=== PATIENT | male | born 1970 | race African-American/Black ===

== ENCOUNTER 2016-12-08 09:35 | Emergency (ER) | payer BC, OTHER ==
[~2016-12-08] VITALS: Ht 188 cm; Wt 97.0 kg
[~2016-12-08 09:35] MED LIST: ALLEGRA; [UNRECOGNIZED DRUG - REMARK]
[2016-12-08] MEDS ORDERED: KETOROLAC 30MG/ML VIAL IM ONE (11:45)
[2016-12-08 12:08] VITALS: BP 168/99
== END 2016-12-08 14:07 | disposition home or self-care (01) ==
LOC: ER 11:48
DX: S39.012A Strain of muscle, fascia and tendon of lower back, initial encounter (principal); X50.1XXA Overexertion from prolonged static or awkward postures, initial encounter; Y93.89 Activity, other specified; Y92.89 Other specified places as the place of occurrence of the external cause; Y99.8 Other external cause status
CPT/HCPCS: 96372; 99283; J1885

== ENCOUNTER 2017-01-24 17:16 | Emergency (ER) | payer BC ==
[~2017-01-24] VITALS: Ht 180.3 cm; Wt 90.0 kg
[2017-01-24 17:20] VITALS: BP 152/108
== END 2017-01-24 18:55 | disposition left against medical advice (07) ==
LOC: ER 17:26
DX: Z53.21 Procedure and treatment not carried out due to patient leaving prior to being seen by health care provider (principal)